=== PATIENT | female | born 1995 | race Caucasian/White ===

== ENCOUNTER 2024-12-18 00:10 | Emergency (ER) | payer OTHER ==
[~2024-12-18] VITALS: Ht 160 cm; Wt 90.9 kg
[2024-12-18 00:17] VITALS: TEMP 98.6
[2024-12-18] MEDS: SODIUM PHOSPHATE,MONO-DIBASIC 133 ML ENEMA PR ONE (01:38)
[2024-12-18] MEDS: MORPHINE SULFATE 2 MG/ML SYRINGE IVP ONE ×2 (01:38→08:20)
[2024-12-18] MEDS: SODIUM CHLORIDE 0.9% 1,000 ML IV ONE (01:38)
[2024-12-18 01:45] LABS: BASOPHILS % (AUTO) 0.1 % (0.0-2.0); EOSINOPHILS % (AUTO) 0.6 % (1.0-6.0); HEMATOCRIT 40.4 % (36-46); HEMOGLOBIN 13.4 g/dL (12.0-16.0); LYMPHOCYTES # (AUTO) 4.3 K/uL (1.0-4.8); LYMPHOCYTES % (AUTO) 21.2 % (22.0-44.0); MEAN CORPUSCULAR HEMOGLOBIN 27.1 pg (26.0-34.0); MEAN CORPUSCULAR VOLUME 82 fL (80-100); MONOCYTES # (AUTO) 1.2 K/uL (0.1-1.0); MONOCYTES % (AUTO) 6.1 % (2.0-9.0); NEUTROPHILS # (AUTO) 14.5 K/uL (1.8-7.7); PLATELET COUNT (AUTO) 309 K/uL (150-450); RED BLOOD CELL COUNT(AUTO) 4.94 MIL/uL (4.00-5.20); RED CELL DISTRIBUTION WIDTH 12.8 % (11.5-14.5); WHITE BLOOD COUNT (AUTO) 20.2 K/uL (4.5-11.0)
[2024-12-18 01:55] LABS: ANION GAP 10 mmol/L (8-16); CALCIUM, TOTAL 8.5 mg/dL (8.8-10.5); CARBON DIOXIDE 26 mmol/L (22-29); CHLORIDE 103 mmol/L (98-107); CREATININE 0.87 mg/dL (0.60-1.30); GLOMERULAR FILTR. RATE CALC > 60 mL/min (>60); GLUCOSE,RANDOM 113 mg/dL (70-110); POTASSIUM 3.7 mmol/L (3.5-5.1); SODIUM SERUM 139 mmol/L (136-145); UREA NITROGEN, BLOOD 15 mg/dL (7-18)
[2024-12-18 02:06] LABS: AMYLASE 41 U/L (25-115); HCG,QUANTITATIVE 29 mIU/mL (0-6); LIPASE 28 U/L (16-77)
[2024-12-18] MEDS: PIPERACILLIN/TAZO 3.375 GM/D5W 50 ML IV ONE (02:40)
[2024-12-18 04:10] LABS: LACTIC ACID 1.5 mmol/L (0.4-2.0)
[2024-12-18 04:47] LABS: APPEARANCE,URINE CLEAR (CLEAR); BILIRUBIN,URINE NEGATIVE (NEGATIVE); COLOR,URINE LIGHT YELLOW (YELLOW); GLUCOSE, URINE (UA) NEGATIVE (NEGATIVE); KETONES,URINE NEGATIVE (NEGATIVE); LEUKOCYTE ESTERASE ,URINE NEGATIVE (NEGATIVE); NITRATE,URINE NEGATIVE (NEGATIVE); OCCULT BLOOD,URINE NEGATIVE (NEGATIVE); PH,URINE 5.5 (5.0-8.0); PROTEIN,URINE NEGATIVE (NEGATIVE); UROBILINOGEN,URINE <=1.0 mg/dL (<=1.0)
[2024-12-18] MEDS: ONDANSETRON HCL 4 MG/2 ML VIAL IVP ONE ×2 (05:15→08:20)
[2024-12-18] MEDS: MORPHINE SULFATE 4 MG/ML SYRINGE IVP ONE (05:33)
[2024-12-18 07:45] VITALS: BP 118/65; PULSE 87; RESP 15; O2SAT 100
[2024-12-18] MEDS ORDERED: METOCLOPRAMIDE HCL 5 MG/ML 2 ML VIAL IVP ONE (08:45)
[2024-12-18] MEDS ORDERED: DiphenhydrAMINE HCL 50 MG/ML VIAL IVP ONE (08:45)
== END 2024-12-18 09:10 | disposition admitted as inpatient to this hospital (09) ==
LOC: EMS 00:39
DX: R10.13 Epigastric pain (principal)
CPT/HCPCS: 99285; 74176; 96365; 76705; 96375; 96361; 80048; 81003; 82150; 83605; 83690; 84702; 85025; 87040; 96376; 36415; J2270 ×2; J2405; J2543; J7030